=== PATIENT | female | born 1980 | race Caucasian/White ===

== ENCOUNTER 2019-01-21 15:02 | Day surgery (SDC) | payer OTHER ==
[2019-01-21 15:40] VITALS: BMI 34.0
--- NOTE | 2019-01-21 17:19 | PDOC.LDHP ---
Labor and Delivery H&P Chief complaint: contractions HPI: 38 yo presents for evaluation of elevated BP. Pt reports she had some nausea and decided to check her bp at home on her mothers wrist cuff. Pt reports highest systolic pressure of 156 and diastolic of 117. Reports pos movement, denies ctx, lof, vaginal bleeding and vaginal discharge. Denies headache, changes in vision, NVDC, ruq/epigastric pain, cp and sob. Current gestational age (weeks): 34 (34.6) Dating criteria: last menstrual period Grav: 4 Para: 3 Current complications: none Abnormal US findings: No Current medications: pre- vitamins Previous surgical history: none Allergies/Adverse Reactions: Allergies Allergy/AdvReac Type Severity Reaction Status Date / Time No Known Allergies Allergy Unverified 01/21/19 15:34 Social history: none - Physical Exam Abnormal vital signs: BP 130-145/80-99, otherwise WNL General: NAD Heart: RRR Lungs: nonlabored breathing Abdomen: NTTP Extremeties: no edema FHT: category 1, variability present [place] contractions every: None - OB Labs Blood type: unknown RH: unknown Antibody Screen: unknown HIV: unknown RPR: unknown HEPSAg: unknown 1 hour GCT: unknown GBS: unknown Urine drug screen: not done - Assessment 1) PIH - check cbc cmp urine protein/cr ratio and monitor pressures - Ext FHM - cont to check BP Dispo: stable, BP has been normal to mildly elevated. Will cont to monitor. Addendum - Attending - Attending Attestation Date/Time: 01/21/192022 I personally evaluated the patient and discussed the management with Dr. Preciado. I agree with the History, Examination, Assessment and Plan documented above with any addition or exceptions noted below.
[2019-01-21 17:46] LABS: #Eosinphils 0.1 thou/uL (0.0-0.7); #Lymphocytes 1.7 thou/uL (1.20-3.40); #Monocytes 0.7 thou/uL (0.11-0.59); #Neutrophils 9.3 thou/uL (1.40-6.50); %Basophils 0.2 % (0.0-1.0); %Eosinophils 0.6 % (0.0-10.0); %Lymphocytes 14.2 % (21.0-51.0); %Monocytes 6.1 % (0.0-10.0); %Neutrophils 78.8 % (42.0-75.0); Hemoglobin 12.6 g/dL (12.0-16.0); Mean Corpuscular HGB CONC 35.4 g/dL (32.0-36.0); Mean Corpuscular Hemoglobin 31.6 pg (27.0-31.0); Mean Corpuscular Volume 89.1 fL (78.0-98.0); Platelet Count 243 thou/uL (130-400); Red Blood Cell (RBC) Count 3.99 mill/uL (4.20-5.40); White Blood Cell (WBC) Count 11.8 thou/uL (4.8-10.8)
[2019-01-21 17:58] LABS: ALT (SGPT) 25 U/L (8-55); AST (SGOT) 16 U/L (5-34); Albumin 3.4 g/dL (3.5-5.0); Alkaline Phosphatase 97 U/L (40-150); Anion Gap 12 mmol/L (10-20); BUN (Urea Nitrogen) 5 mg/dL (7.0-18.7); Bilirubin, Total 0.5 mg/dL (0.2-1.2); Calc. Creatinine Clearance 172 mL/min (70-130); Carbon Dioxide 20 mmol/L (22-29); Chloride 107 mmol/L (98-107); Estimated GFR-MDRD Greater than 90; Glucose 91 mg/dL (70-105); Protein, Total 6.4 g/dL (6.0-8.3); Sodium 135 mmol/L (136-145)
[2019-01-21 18:03] LABS: Protein, Urine Random Quant Less than 10 mg/dL (1-14)
== END 2019-01-21 18:10 | disposition home or self-care (01) ==
LOC: L&D/OP 15:02
PROVIDERS: ATTEND Obstetrics & Gynecology
DX: O13.3 Gestational [pregnancy-induced] hypertension without significant proteinuria, third trimester (principal); Z3A.34 34 weeks gestation of pregnancy; Z79.899 Other long term (current) drug therapy
CPT/HCPCS: 36415; 80053; 82570; 84156; 85025; 99283

== ENCOUNTER 2019-02-10 05:30 | Inpatient (IN) | payer OTHER ==
--- NOTE | 2019-02-09 23:21 | PDOC.LDHP ---
Labor and Delivery H&P Chief complaint: scheduled induction HPI: 38 y/o at 37 and 5/7 weeks for term induction of labor for JAELYN TRUJILLO. Due date: 02/27/19 Grav: 4 Para: 3 Current complications: gestational hypertension Abnormal US findings: No Current medications: pre- vitamins Allergies/Adverse Reactions: Allergies Allergy/AdvReac Type Severity Reaction Status Date / Time No Known Allergies Allergy Unverified 01/21/19 15:34 - Physical Exam Vital signs reviewed and normal: yes General: NAD, resting Heart: RRR Lungs: CTAB Abdomen: gravid Extremeties: no edema FHT: category 1 - Assessment L&D Assessment: medically indicated induction - Plan Plan: admit to L&D, cervical ripening
[~2019-02-10 05:30] MED LIST: Butorphanol Tartrate 1 MG/ML VIAL SLOW IVP PRN; Carboprost 250 MCG/ML AMP IM PRN; Diphenoxylate HCl/Atropine Tablet PO PRN; Docusate 100 MG CAP PO PRN; HYDROcodone/Acetaminophen 5/325 mg Tablet PO PRN; Ibuprofen 800 MG TAB PO PRN; Lidocaine 1% (PF) 30 ML VIAL SC PRN; Misoprostol 200 MCG TAB PR PRN; NS w/ Oxytocin 10 units 500 ML IV SCH; Ondansetron PF 4 MG/2 ML Vial IVP PRN; Promethazine HCl 25 MG/ML VIAL IM PRN
[2019-02-10 06:14] VITALS: BMI 34.3
[2019-02-10] MEDS: Lactated Ringer's 1,000 ML IV SCH ×3 (06:40→13:45)
[2019-02-10 07:11] LABS: Hemoglobin 12.2 g/dL (12.0-16.0); Mean Corpuscular HGB CONC 34.6 g/dL (32.0-36.0); Mean Corpuscular Hemoglobin 31.4 pg (27.0-31.0); Mean Corpuscular Volume 90.9 fL (78.0-98.0); Mean Platelet Volume 8.5 fL (7.4-10.4); Platelet Count 197 thou/uL (130-400); RBC Distribution Width 11.8 % (11.5-14.5); Red Blood Cell (RBC) Count 3.88 mill/uL (4.20-5.40); White Blood Cell (WBC) Count 9.2 thou/uL (4.8-10.8)
[2019-02-10] MEDS ORDERED: Fentanyl 4 mcg/Bup 0.1% Cadd 100 ML ONE (07:53)
[2019-02-10 07:54] LABS: Hep B Surf Ag Non-Reactive S/CO (NonReactive)
[2019-02-10 08:02] LABS: Syphilis Antibody Index 1.55 S/CO (<1.00 Non-Reactive)
[2019-02-10 09:26] LABS: Syphilis Antibody INDETERMINATE (Nonreactive); Syphilis Titer Non-Reactive (Negative)
[2019-02-10] MEDS ORDERED: Lactated Ringer's 500 ML IV PRN (09:50)
[2019-02-10] MEDS ORDERED: ePHEDrine/0.9% NaCl/PF SYRINGE 50 mg/10 ml SLOW IVP PRN (09:50)
[2019-02-10] MEDS ORDERED: Ondansetron PF 4 MG/2 ML Vial IVP PRN ×2 (09:50→20:46)
[2019-02-10] MEDS ORDERED: diphenhydrAMINE 50 MG/ML VIAL IVP PRN (09:50)
[2019-02-10] MEDS ORDERED: Naloxone HCl 0.4 mg/ml Vial IVP PRN ×2 (09:50)
[2019-02-10] MEDS ORDERED: Eucerin (Mineral Oil/Petrolatum,White) 30 gm Jar TOP PRN (09:50)
[2019-02-10] MEDS ORDERED: Promethazine HCl 25 MG/ML VIAL IM PRN ×2 (09:50→20:46)
[2019-02-10] MEDS ORDERED: Acetaminophen 325 MG TAB PO PRN (09:50)
[2019-02-10] MEDS ORDERED: Communication Order-Pharmacy FS SCH (10:00)
[2019-02-10] MEDS ORDERED: Fentanyl 4 mcg/Bupivacaine 0.1% Cassette 100 ML EPIDURAL SCH (10:00)
[2019-02-10] MEDS ORDERED: Lidocaine 2% MPF 10 ML AMP (For Epidural Use) ONE (11:11)
[2019-02-10] MEDS ORDERED: ePHEDrine/0.9% NaCl/PF SYRINGE 50 mg/10 ml ONE (11:11)
[2019-02-10] MEDS ORDERED: NS / Oxytocin 40 units/1000ml 1,000 ML ONE (14:47)
[2019-02-10] MEDS ORDERED: Lidocaine 1% (PF) 30 ML VIAL ONE (14:47)
[2019-02-10] MEDS: NS / Oxytocin 40 units/1000ml 1,000 ML IV PRN ×2 (17:21→18:26)
[2019-02-10] MEDS ORDERED: Bisacodyl 10 MG SUPP PR PRN (20:46)
[2019-02-10] MEDS ORDERED: HYDROcodone/Acetaminophen 5/325 mg Tablet PO PRN ×2 (20:46)
[2019-02-10] MEDS ORDERED: Zolpidem Tartrate 5 MG TAB PO PRN (20:46)
[2019-02-10] MEDS ORDERED: Benzocaine-Menthol 82.5 ML CAN TOP PRN (20:46)
[2019-02-10] MEDS ORDERED: Preparation H Ointment 28 GM TUBE PR PRN (20:46)
[2019-02-10] MEDS ORDERED: diphenhydrAMINE 25 MG CAP PO PRN (20:46)
[2019-02-10] MEDS ORDERED: NS / Oxytocin 40 units/1000ml 1,000 ML IV SCH (20:46)
[2019-02-10] MEDS ORDERED: Milk Of Magnesia 30 ML UDCUP PO PRN (20:46)
[2019-02-10] MEDS ORDERED: Lanolin Ointment 7 GM TUBE TOP PRN (20:46)
[2019-02-10] MEDS ORDERED: Measles/Mumps/Rubella 10 MCG/0.5 ML VIAL SC ONE (21:00)
[2019-02-10] MEDS ORDERED: Varicella virus, LIVE 0.5 ML VIAL SC ONE (21:00)
[2019-02-10] MEDS ORDERED: Adacel (T-DAP) 0.5 ML SYRINGE IM ONE (21:00)
[2019-02-10] MEDS: Docusate Calcium (SURFAK) 240 MG CAP PO SCH (21:41)
[2019-02-10] MEDS: Ibuprofen 800 MG TAB PO SCH (21:42)
[2019-02-11] MEDS: Ibuprofen 800 MG TAB PO SCH ×3 (05:32→21:33)
[2019-02-11 06:04] LABS: Hemoglobin 11.9 g/dL (12.0-16.0); Mean Corpuscular HGB CONC 34.9 g/dL (32.0-36.0); Mean Corpuscular Hemoglobin 31.8 pg (27.0-31.0); Mean Corpuscular Volume 91.1 fL (78.0-98.0); Mean Platelet Volume 8.6 fL (7.4-10.4); Platelet Count 182 thou/uL (130-400); RBC Distribution Width 11.8 % (11.5-14.5); Red Blood Cell (RBC) Count 3.75 mill/uL (4.20-5.40); White Blood Cell (WBC) Count 12.6 thou/uL (4.8-10.8)
[2019-02-11] MEDS: Ferrous Sulfate 325 MG TAB PO SCH ×2 (09:54→17:24)
[2019-02-11] MEDS: Prenatal Vitamin 1 TAB PO SCH (09:58)
[2019-02-11] MEDS: Docusate Calcium (SURFAK) 240 MG CAP PO SCH ×2 (09:58→21:33)
--- NOTE | 2019-02-11 15:41 | PDOC.PP ---
Post Progress Note Post Day #: 1 PO intake tolerated: yes Flatus: yes Ambulation: yes Vital Signs (12 hours) Temp Pulse Resp BP Pulse Ox 02/11/19 08:00 98.6 F 83 14 132/73 96 02/11/19 05:30 98.3 F 77 18 135/89 Weight Weight 200 lb - Physical Examination General: NAD Cardiovascular: no m/r/g, RRR Respiratory: clear to auscultation bilaterally Abdominal: + bowel sounds, lochia Extremities: negative homans (B) Neurological: no gross focal deficits Psychiatric: A&Ox3, normal affect (DC home tomorrow planned) Result Diagrams: 02/11/19 05:29 Additional Labs: Post Labs Blood Type A NEGATIVE 02/10/19 08:15 Hep Bs Antigen Non-Reactive S/CO (NonReactive) 02/10/19 06:43
--- NOTE | 2019-02-12 03:06 | DN ---
DATE OF PROCEDURE: 02/10/2019 PREOPERATIVE DIAGNOSES: Intrauterine at 37 weeks and 5 days with gestational hypertension and advanced maternal age. POSTOPERATIVE DIAGNOSES: Intrauterine at 37 weeks and 5 days with gestational hypertension and advanced maternal age. PROCEDURE: Spontaneous vaginal delivery over intact perineum. QUANTITATIVE BLOOD LOSS: 174 mL. COMPLICATIONS: None. FINDINGS: Viable female infant, weighing 2573 g or 5 pounds 11 ounces, Apgars 8 and 9. PROCEDURE IN DETAIL: The patient presented to [facility] where she was admitted to the labor and delivery service. The patient underwent a normal and uneventful labor with normal cervical dilatation until she was found to be completely dilated. She was then allowed to push and was able to bring the baby down and delivered the baby in a vertex presentation without difficulties. Once the head delivered in occiput anterior position, the shoulders followed spontaneously along with the rest of the baby's body. Once out the baby's mouth and nose were bulb suctioned. The cord was clamped and cut and baby was handed to waiting attendants. Cord blood was collected. Gentle fundal massage was performed and the placenta delivered intact without problems. Hemostasis was assured. Quantitative blood loss was calculated. Inspection of the cervix, vaginal vault, and perineum did not reveal any lacerations needing suturing. Once again, hemostasis was within normal limits and the patient was allowed to recover in the labor and delivery room. Baby went to nursery. Job ID: [id number]
[2019-02-12] MEDS: Ibuprofen 800 MG TAB PO SCH (05:32)
[2019-02-12 09:21] VITALS: BP 92/61; TEMP 98.4
[2019-02-12] MEDS: Ferrous Sulfate 325 MG TAB PO SCH (09:42)
[2019-02-12] MEDS: Prenatal Vitamin 1 TAB PO SCH (09:42)
[2019-02-12] MEDS: Docusate Calcium (SURFAK) 240 MG CAP PO SCH (09:42)
== END 2019-02-12 10:45 | disposition home or self-care (01) | DRG 807 ==
LOC: L&D 05:36 → UNDOADMIN 05:36 → 3SW 20:12
PROVIDERS: ADMIT Obstetrics & Gynecology; ATTEND Obstetrics & Gynecology
PROC: 10E0XZZ Delivery of Products of Conception, External Approach (ICD-10-PCS; principal; 2019-02-10)
PROC: 3E033VJ Introduction of Other Hormone into Peripheral Vein, Percutaneous Approach (ICD-10-PCS; 2019-02-10)
DX: O13.4 Gestational [pregnancy-induced] hypertension without significant proteinuria, complicating childbirth (principal); Z37.0 Single live birth; Z3A.37 37 weeks gestation of pregnancy; Z23 Encounter for immunization
CPT/HCPCS: 36415; 51702; 85027; 85461; 86593; 86780; 86850; 86870; 86900; 86901; 87340; 90384; 90715; 96372; J2001; J2590

== ENCOUNTER 2024-08-31 09:24 | Outpatient (CLI) | payer OTHER | END 2024-08-31 09:25 | disposition home or self-care (01) | LOC: BICMAMMO 09:24 | PROVIDERS: ATTEND Nurse Practitioner Family | DX: Z12.31 Encounter for screening mammogram for malignant neoplasm of breast (principal) | CPT/HCPCS: 77063; 77067 ==